=== PATIENT | male | born 1985 | race Caucasian/White ===

== ENCOUNTER 2025-03-10 21:32 | Emergency (ER) | payer BC ==
[~2025-03-10] VITALS: Ht 182.9 cm; Wt 75.0 kg
[2025-03-10 21:40] VITALS: O2SAT 100
[2025-03-10] MEDS: KETOROLAC 15MG/ML VIAL IV ONE (23:15)
[2025-03-10] MEDS: ONDANSETRON HCL 4MG/2ML INJ IV ONE (23:15)
[2025-03-10] MEDS: SODIUM CHLORIDE 0.9% 1,000 ML IV ONE (23:16)
[2025-03-11 01:13] VITALS: BP 100/78; PULSE 80; RESP 18; TEMP 36.7; O2SAT 100
== END 2025-03-11 01:24 | disposition home or self-care (01) ==
LOC: ER 21:46
DX: N20.0 Calculus of kidney (principal); R11.2 Nausea with vomiting, unspecified; F12.90 Cannabis use, unspecified, uncomplicated; Z87.442 Personal history of urinary calculi
CPT/HCPCS: 99284; 96374; 96361; 96375; J1885; J2405; J7030